=== PATIENT | female | born 1975 | race Caucasian/White ===

== ENCOUNTER 2021-10-07 08:59 | Emergency (ER) | payer OTHER ==
[~2021-10-07] VITALS: Ht 162.6 cm; Wt 54.4 kg
--- NOTE | 2021-10-07 09:00 | NUR ---
PT CARLOSA TAKEN TO ER BED 4 VIA GUR[facility].
[2021-10-07 09:09] VITALS: BP 147/93
[2021-10-07] MEDS ORDERED: KETOROLAC 30 MG/ML VIAL IVP ONE (09:25)
--- NOTE | 2021-10-07 09:25 | NUR ---
DR. FELIZ AT PT BEDSIDE FOR FURTHER EVALUATION.
--- NOTE | 2021-10-07 09:27 | NUR ---
45Y FEMALE BIBA FROM STREETS DUE TO ABDOMINAL PAIN X4-5 DAYS. PT STATED SHE ALSO HASN'T HAD A BM IN 4-5 DAYS. PT STATED SHE RECIEVED AN ENEMA WHICH PROVIDED NO RELIEF PMH:SNEHAL BOWER
--- NOTE | 2021-10-07 09:30 | NUR ---
PT STATES SHE IS UNABLE TO PROVIDE UA SAMPLE AT THIS TIME. DEXTER MADE AWARE.
--- NOTE | 2021-10-07 09:40 | NUR ---
pt josé swabbed for covid , handed to lab at bedside.
[2021-10-07 09:53] LABS: BASOPHILS % (AUTO) 0.3 % (0.0-2.0); EOSINOPHILS # (AUTO) 0.1 K/uL (0-0.4); EOSINOPHILS % (AUTO) 1.1 % (0.0-4.0); HEMATOCRIT 34.3 % (36-48); HEMOGLOBIN 11.3 g/dL (12.0-16.0); LYMPHOCYTES # (AUTO) 0.8 K/uL (2.5-16.5); LYMPHOCYTES % (AUTO) 8.9 % (20.5-51.1); MEAN CORPUSCULAR HEMOGLOBIN 27 pg (27-31); MEAN CORPUSCULAR HGB CONC 33 g/dL (33-37); MEAN CORPUSCULAR VOLUME 83.1 fL (80-94); MONOCYTES # (AUTO) 0.7 K/uL (0.8-1.0); MONOCYTES % (AUTO) 8.4 % (1.7-9.3); NEUTROPHILS # (AUTO) 7.2 K/uL (1.8-7.7); NEUTROPHILS % (AUTO) 81.3 % (42.2-75.2); PLATELET COUNT (AUTO) 609 K/uL (140-450); RED BLOOD CELL COUNT(AUTO) 4.13 MIL/uL (4.20-5.40); RED CELL DISTRIBUTION WIDTH 15.8 % (11.6-13.7); WHITE BLOOD COUNT (AUTO) 8.9 K/uL (4.8-10.8)
--- NOTE | 2021-10-07 09:57 | NUR ---
re evaluated pt pain. pt states relief, pain at 0/10.
[2021-10-07 10:13] LABS: ALBUMIN 2.4 g/dL (3.4-5.0); ANION GAP 11.5 (8-16); CARBON DIOXIDE 29.8 mmol/L (21-32); CREATININE 0.7 mg/dL (0.6-1.3); POTASSIUM 3.3 mmol/L (3.5-5.1); TOTAL BILIRUBIN 0.5 mg/dL (0.0-1.0)
[2021-10-07] MEDS ORDERED: NACL 0.9% 1,000 ML IV ONE (10:20)
--- NOTE | 2021-10-07 11:16 | NUR ---
PT TAKEN TO CT VIA [facility]
--- NOTE | 2021-10-07 11:25 | NUR ---
PATIENT RETURNED FROM IMAGING VIA [facility]
[2021-10-07 11:27] LABS: APPEARANCE,URINE SL CLOUDY (CLEAR); BILIRUBIN,URINE NEGATIVE (NEGATIVE); BLOOD, URINE TRACE-I (NEGATIVE); COLOR,URINE YELLOW (YELLOW); LEUKOCYTE ESTERASE ,URINE 1+ (NEGATIVE); NITRITE, URINE POSITIVE (NEGATIVE); UGLUCOSE NEGATIVE (NEGATIVE)
[2021-10-07 12:16] LABS: RBC,URINE 0-5 /HPF (0-5); WBC,URINE 0-5 /HPF (0-5)
[2021-10-07 12:17] LABS: CALCIUM OXALATE CRYSTALS,UR None Seen /HPF (None Seen); OTHER CRYSTALS,URINE None Seen /HPF (None Seen); TRICHOMONAS,URINE None Seen /HPF (None Seen); TRIPLE PHOSPHATE CRYSTAL,UR None Seen /HPF (None Seen); URIC ACID CRYSTALS,URINE None Seen /HPF (None Seen); URINE AMORPHOUS URATE None Seen /HPF (None Seen); YEAST,URINE None Seen /HPF (None Seen)
[2021-10-07 12:18] LABS: COARSE GRANULAR CASTS,URINE None Seen /LPF (None Seen); FINE GRANULAR CASTS,URINE None Seen /LPF (None Seen); HYALINE CASTS, URINE None Seen /LPF (None Seen); OTHER CASTS, URINE None Seen /LPF (None Seen); RED BLOOD CELL CASTS,URINE None Seen /LPF (None Seen); WAXY CASTS,URINE None Seen /LPF (None Seen)
[2021-10-07] MEDS ORDERED: ACET-10509 PO (12:37)
[2021-10-07] MEDS ORDERED: GLYPS RC (12:37)
[2021-10-07] MEDS ORDERED: LACT-103 PO (12:37)
--- NOTE | 2021-10-07 12:55 | NUR ---
PT RESTING IN BED, VSS, WILL CONTINUE TO MONITOR.
[2021-10-07 13:08] VITALS: BP 131/63
--- NOTE | 2021-10-07 13:08 | NUR ---
Patient discharged with v/s stable. Written and verbal after care instructions given and explained. Patient alert, oriented and verbalized understanding of instructions. Ambulatory with steady gait. All questions addressed prior to discharge. ID band removed. Patient advised to follow up with PMD. Rx of TYLENOL, LACTULOSE, AND GLYCERIN given. Patient educated on indication of medication including possible reaction and side effects. Opportunity to ask questions provided and answered.
--- NOTE | 2021-10-07 13:16 | NUR ---
Chart checked and completed. The patient's care was reviewed and supervised by Luli James, RN, RN.
== END 2021-10-07 13:08 | disposition home or self-care (01) ==
LOC: MED 08:59
DX: K52.9 Noninfective gastroenteritis and colitis, unspecified (principal); Z20.822 Contact with and (suspected) exposure to COVID-19; K59.00 Constipation, unspecified; F15.10 Other stimulant abuse, uncomplicated; Z71.6 Tobacco abuse counseling; F17.200 Nicotine dependence, unspecified, uncomplicated; Z79.899 Other long term (current) drug therapy
CPT/HCPCS: 36415; 74176; 80053; 81001; 81025; 83690; 85025; 87086; 87426; 96361; 96374; 99285; J1885; J7030